=== PATIENT | male | born 1985 | race Caucasian/White ===

== ENCOUNTER 2025-01-07 00:46 | Emergency (ER) | payer SELFPAY ==
[2025-01-07 01:31] LABS: #Basophils 0.1 thou/uL (0.0-0.2); #Eosinophils 0.3 thou/uL (0.0-0.7); #Lymphocytes 2.4 thou/uL (1.20-3.40); #Monocytes 0.5 thou/uL (0.11-0.59); #Neutrophils 3.9 thou/uL (1.40-6.50); %Basophils 2.1 % (0.0-1.0); %Eosinophils 4.4 % (0.0-10.0); %Lymphocytes 32.9 % (21.0-51.0); %Monocytes 6.7 % (0.0-10.0); Hematocrit 51.2 % (42.0-52.0); Hemoglobin 16.6 g/dL (14.0-18.0); Mean Corpuscular HGB CONC 32.4 g/dL (32.0-36.0); Mean Corpuscular Hemoglobin 29.9 pg (27.0-31.0); Mean Corpuscular Volume 92.5 fl (78.0-98.0); Mean Platelet Volume 10.6 fL (7.4-10.4); Platelet Count 256 10x3/uL (130-400); RBC Distribution Width 12.8 % (11.5-14.5); Red Blood Cell (RBC) Count 5.53 mill/uL (4.70-6.10); White Blood Cell (WBC) Count 7.2 10x3/uL (4.8-10.8)
[2025-01-07 01:52] LABS: Troponin I Less than 0.010 ng/mL (< 0.028)
[2025-01-07 01:55] LABS: ALT (SGPT) 27 U/L (Less than 45); AST (SGOT) 22 U/L (11-34); Albumin 4.7 g/dL (3.1-4.5); Alkaline Phosphatase 67 U/L (40-110); Anion Gap 17 mmol/L (10-20); BUN (Urea Nitrogen) 13 mg/dL (8.9-20.6); Bilirubin, Total 0.5 mg/dL (0.3-1.2); Calc. Creatinine Clearance 0 mL/min (70-130); Calcium 9.3 mg/dL (7.8-10.44); Carbon Dioxide 23 mmol/L (22-29); Chloride 105 mmol/L (98-107); Estimated GFR 115; Globulin 3.2 g/dL (2.4-3.5); Glucose 105 mg/dL (70-105); Potassium 4.4 mmol/L (3.5-5.1); Protein, Total 7.9 g/dL (6.0-8.3); Sodium 141 mmol/L (136-145)
== END 2025-01-07 02:14 | disposition home or self-care (01) ==
LOC: MADERS 00:46
DX: R07.89 Other chest pain (principal); Z72.0 Tobacco use
CPT/HCPCS: 71045; 80053; 83880; 84484; 85025; 85379; 93005; 94760